=== PATIENT | male | born 2005 | race Hispanic/Latino ===

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

== ENCOUNTER 2023-02-21 15:14 | Emergency (ER) | payer MEDICAID, OTHER ==
[~2023-02-21] VITALS: Ht 167.6 cm; Wt 52.2 kg
[2023-02-21 16:45] VITALS: BP 124/78
== END 2023-02-21 17:18 | disposition home or self-care (01) ==
LOC: EDH 15:14
DX: T23.101A Burn of first degree of right hand, unspecified site, initial encounter (principal); X08.8XXA Exposure to other specified smoke, fire and flames, initial encounter; Y93.89 Activity, other specified; Y92.89 Other specified places as the place of occurrence of the external cause; Y99.8 Other external cause status
CPT/HCPCS: 99282